=== PATIENT | male | born 1975 | race Caucasian/White ===

== ENCOUNTER 2023-03-04 12:35 | Emergency (ER) | payer OTHER ==
[~2023-03-04] VITALS: Ht 180.3 cm; Wt 81.7 kg
[2023-03-04 12:38] VITALS: BP 136/100
[2023-03-04] MEDS ORDERED: HYDR1TAB94 PO (14:52)
[2023-03-04] MEDS ORDERED: IBUP800 PO (14:52)
[2023-03-04] MEDS ORDERED: LIDO700A20 TOP (14:52)
== END 2023-03-04 15:00 | disposition home or self-care (01) ==
LOC: ER 12:35
DX: S22.39XA Fracture of one rib, unspecified side, initial encounter for closed fracture (principal); F17.210 Nicotine dependence, cigarettes, uncomplicated; X50.1XXA Overexertion from prolonged static or awkward postures, initial encounter
CPT/HCPCS: 71046; 96372; 99284-25; A9270; J1885

== ENCOUNTER 2023-04-06 18:12 | Emergency (ER) | payer OTHER ==
[~2023-04-06] VITALS: Ht 180.3 cm; Wt 83.9 kg
[~2023-04-06 18:12] MED LIST: HYDR1TAB94 PO; IBUP800 PO; LIDO700A20 TOP
[2023-04-06 18:21] VITALS: BP 130/89
[2023-04-06] MEDS ORDERED: AMOCLA875 PO (20:00)
== END 2023-04-06 20:08 | disposition home or self-care (01) ==
LOC: ER 18:12
DX: S71.152A Open bite, left thigh, initial encounter (principal); S81.852A Open bite, left lower leg, initial encounter; W54.0XXA Bitten by dog, initial encounter; F17.210 Nicotine dependence, cigarettes, uncomplicated
CPT/HCPCS: 12004; 90471; 90714; 90715; 99283-25; A9270